=== PATIENT | male | born 1985 | race Caucasian/White ===

== ENCOUNTER 2019-01-31 15:39 | Emergency (ER) | payer MEDICAID ==
[~2019-01-31] VITALS: Ht 170.2 cm; Wt 116.1 kg
[2019-01-31 15:45] VITALS: BP 148/104
--- NOTE | 2019-01-31 16:00 | NUR ---
PT AMBULATED TO BED 04
--- NOTE | 2019-01-31 16:03 | NUR ---
33 Y/O MALE C/O SEVERE BODY PAIN X1 DAY 12/08. PATIENT STATES HE STOPPED TAKING HIS MEDICATION FOR FIBROMYALGIA YESTERDAY CONSISTING OF NORCO, GABAPENTIN, TIRPTALINE, BECAUSE HE DIDN'T THINK HE NEEDED IT ANYMORE. PATIENT HAS HAD N/V TODAY. BED LOWERED TO LOWEST POSITION, SIDE RAIL X1 IN PLACE. MED HX: FIBROMYALGIA NKA
--- NOTE | 2019-01-31 16:09 | NUR ---
LAB AT BEDSIDE DRAWING PATIENTS ORDERED LAB WORK.
[2019-01-31 16:36] LABS: BASOPHILS % (AUTO) 0.3 % (0.0-2.0); EOSINOPHILS % (AUTO) 0.5 % (0.0-4.0); HEMATOCRIT 46.8 % (36-52); HEMOGLOBIN 15.6 g/dL (12.0-18.0); LYMPHOCYTES # (AUTO) 1.3 K/uL (2.0-11.5); LYMPHOCYTES % (AUTO) 16.7 % (20.5-51.1); MEAN CORPUSCULAR HEMOGLOBIN 31 pg (27-31); MEAN CORPUSCULAR HGB CONC 33 g/dL (33-37); MONOCYTES # (AUTO) 0.5 K/uL (0.8-1.0); MONOCYTES % (AUTO) 6.7 % (1.7-9.3); NEUTROPHILS # (AUTO) 5.8 K/uL (1.8-7.7); NEUTROPHILS % (AUTO) 75.8 % (42.2-75.2); PLATELET COUNT (AUTO) 229 K/uL (140-450); RED BLOOD CELL COUNT(AUTO) 4.98 MIL/uL (4.20-6.10); RED CELL DISTRIBUTION WIDTH 13.3 % (11.6-13.7); WHITE BLOOD COUNT (AUTO) 7.6 K/uL (4.8-10.8)
[2019-01-31 16:40] LABS: APPEARANCE,URINE CLEAR (CLEAR); BILIRUBIN,URINE NEGATIVE (NEGATIVE); BLOOD, URINE TRACE-I (NEGATIVE); COLOR,URINE YELLOW (YELLOW); LEUKOCYTE ESTERASE ,URINE NEGATIVE (NEGATIVE); NITRITE, URINE NEGATIVE (NEGATIVE); UGLUCOSE NEGATIVE (NEGATIVE)
[2019-01-31 16:45] LABS: ANION GAP 19.7 (8-16); CARBON DIOXIDE 24.1 mmol/L (21-32); CREATININE 0.9 mg/dL (0.7-1.3); POTASSIUM 3.8 mmol/L (3.5-5.1)
[2019-01-31 16:48] LABS: BARBITURATE, URINE NEG. ng/ml (NEG <=200); BENZODIAZEPINE, URINE NEG. ng/mL (NEG <=200); CANNABINOID, URINE NEG. ng/mL (NEG <=50); COCAINE, URINE NEG. ng/mL (NEG <=300); OPIATE, URINE NEG. ng/mL (NEG <=2000); PHENCYCLIDINE SCREEN,URINE NEG. ng/mL (NEG <=25)
[2019-01-31 16:51] LABS: ALBUMIN 4.5 g/dL (3.4-5.0); TOTAL BILIRUBIN 0.5 mg/dL (0.0-1.0)
[2019-01-31 16:55] LABS: RBC,URINE 0-5 /HPF (0-5); WBC,URINE NONE SEEN /HPF (0-5)
--- NOTE | 2019-01-31 16:59 | NUR ---
Patient being evaluated by DR MANN at bedside.
[2019-01-31] MEDS ORDERED: LORazepam 1 MG TAB PO ONE (17:10)
[2019-01-31] MEDS ORDERED: ONDANSETRON 4 MG ODT PO ONE (17:10)
[2019-01-31] MEDS ORDERED: cloNIDine 0.1 MG TAB PO ONE (17:10)
--- NOTE | 2019-01-31 18:40 | NUR ---
PT STATES HE IS HAVING PAIN 08/08. MD WAS ADVISED. PATIENT INFORMED THAT HE CAN TAKE THE PAIN MEDICATION PRESCRIBED TO HIM AT HOME (NORCO) FOR HIS FIBROMIALGIA CHRONIC PAIN.
[2019-01-31 19:06] VITALS: BP 148/99
--- NOTE | 2019-01-31 19:06 | NUR ---
Patient discharged with v/s stable. Written and verbal after care instructions given and explained. Patient verbalized understanding. Ambulatory with steady gait. All questions addressed prior to discharge. Advised to follow up with PMD.
== END 2019-01-31 19:06 | disposition home or self-care (01) ==
LOC: MED 15:39
DX: F11.23 Opioid dependence with withdrawal (principal); M79.7 Fibromyalgia; F32.9 Major depressive disorder, single episode, unspecified; L40.9 Psoriasis, unspecified
CPT/HCPCS: 36415; 80053; 80305; 81001; 85025; 99284; Q0162

== ENCOUNTER 2019-02-02 10:14 | Emergency (ER) | payer MEDICAID | END 2019-02-02 11:22 | disposition left against medical advice (07) | LOC: MED 10:14 | DX: A09 Infectious gastroenteritis and colitis, unspecified (principal); F41.9 Anxiety disorder, unspecified | CPT/HCPCS: 99281; 99283; 99284 ==